=== PATIENT | male | born 1960 | race Caucasian/White ===

== ENCOUNTER → 2023-05-23 06:19 | Day surgery (SDC) | payer OTHER, SELFPAY | LOC: GI 06:19 | PROVIDERS: ATTENDING PHYSICIAN Internal Medicine Gastroenterology | DX: Z12.11 Encounter for screening for malignant neoplasm of colon (principal); K64.8 Other hemorrhoids; D12.2 Benign neoplasm of ascending colon; D12.3 Benign neoplasm of transverse colon; D12.4 Benign neoplasm of descending colon | CPT/HCPCS: 45385; 88305 ==

== ENCOUNTER 2023-06-22 04:17 | Inpatient (IN) | payer OTHER, SELFPAY ==
[2023-06-21 22:17] VITALS: BMI 28.1
[2023-06-21 22:26] VITALS: BP 174/119
[2023-06-21 22:43] LABS: % Basophils 0.6 % (0-2); % Eosinophils 2.7 % (0-6); % Immature Granulocytes 0.4 % (0-0.5); % Lymphocytes 27.8 % (20.5-51.1); % Neutrophils 62.5 % (42.2-75.2); Absolute Basophils 0.1 10^3/uL (0-0.2); Absolute Eosinophils 0.3 10^3/uL (0-0.7); Absolute Immature Granulocytes 0.1 10^3/uL (0-0.05); Absolute Lymphocytes 3.5 10^3/uL (1.2-3.4); Absolute Monocytes 0.7 10^3/uL (0.1-0.6); Absolute Neutrophils 7.8 10^3/uL (1.4-6.5); Mean Corp Hgb Conc. 36.4 g/dL (33.0-37.0); Mean Corpuscular Hgb 30.5 pg (27.0-31.0); Mean Platelet Volume 11.3 fL (7.4-10.4); Nucleated Red Blood Cells % 0 % (-); Platelet Count 147 10^3/uL (130-400); Red Blood Cell Count 5.24 10^6/uL (4.70-6.10); Red Cell Dist. Width 13.2 % (11.5-14.5); White Blood Cell Count 12.4 10^3/uL (4.8-10.8)
[2023-06-21 23:01] LABS: ALT (SGPT) 19 U/L (0-50); AST (SGOT) 25 U/L (17-59); Albumin 4.9 g/dl (3.5-5.0); Alkaline Phosphatase 90 U/L (38-126); Blood Urea Nitrogen 18 mg/dl (9-20); Carbon Dioxide 24 mmol/L (22-30); Chloride 104 mmol/L (98-107); Glucose 117 mg/dl (70-99); Lipase 111 U/L (23-300); Potassium 4.2 mmol/L (3.5-5.1); Sodium 136 mmol/L (135-145); Total Bilirubin 0.9 mg/dl (0.2-1.3); Total Protein 8.2 g/dl (6.3-8.2); eGFR > 60.00
[2023-06-21 23:35] LABS: Urine Albumin Negative (Neg - Trace); Urine Bilirubin Negative (Negative); Urine Character Clear (Clear); Urine Color Yellow; Urine Glucose Negative (Negative); Urine Ketone Trace (Negative); Urine Leukocyte Negative (Negative); Urine Nitrite Negative (Negative); Urine Occult Blood Negative (Negative); Urine Urobilinogen Negative (Neg - 1+)
[2023-06-22] VITALS (17 sets, daily range): BP systolic 0–146; BP diastolic 77–99
[2023-06-22] MEDS: ZOFRAN 4 MG IV (01:25)
[2023-06-22] MEDS: DILAUDID 1 MG IV (01:26)
--- NOTE | 2023-06-22 01:34 | ED.GENMED ---
History of Present Illness
General
Chief Complaint: Abdominal Pain
Source: patient
Exam Limitations: none
Time Seen by Provider: 06/22/23 00:44
Travel History
Have you had any contact with someone who has COVID-19?: No
Do you have any symptoms of coronavirus? Fever > 100 degrees, chills, cough, shortness of breath, sore throat, loss of taste or smell, muscle aches, or headache?: No
History of Present Illness
History of Present Illness:
This is a 62 year old male that comes in with c/o right upper abd pain. States that this started a few days ago. Tonight it was so bad that he can hardly touch his upper abd. sates that he tried Prilosec as he thought it was reflux and nothing
helped. States that he is nauseated. Denies any fever, chills, chest pain, SOB, vomiting, diarrhea, headache, dizziness, urinary burning.
Past History
Past History
ED Past Medical History: GERD, HTN, Hypercholesterolemia, Psychiatric (Anxiety) and Other (Back pain, Migraines, Herniated disc)
ED Past Surgical History: Appendectomy and Cardiac (bypass)
Social History
Tobacco: Non-smoker
Alcohol: None
Personal:
Living: with family
Review of Systems
Review of Systems
All Other Systems: ROS reviewed and negative except as documented in HPI and ROS
Constitutional: Reports no symptoms; Denies fever or chills
EENT: Reports no symptoms
Respiratory: Reports no symptoms; Denies cough or trouble breathing
Cardiac: Reports no symptoms; Denies chest pain
ABD/GI: Reports abdominal pain and nausea; Denies vomiting or diarrhea
: Reports no symptoms; Denies dysuria, frequency or urgency
Musculoskeletal: Reports no symptoms
Skin: Reports no symptoms
Neurological: Reports no symptoms; Denies dizzy or headache
Psychiatric: Reports no symptoms
Phy Exam
General Physical Exam
General Presentation: mild distress
General age: appears stated age
General Skin: warm and dry
General Habitus: normal
General Mental: alert
General Hydration: dry mucous membranes
ENT Exam
ENT Exam: TM's normal, pharynx normal and neck supple
Eye Exam
Eye Exam: EOMI
Cardiovascular Exam
Cardiovascular Exam: regular rate/rhythm, no edema, no murmur and normal peripheral pulses
Pulmonary Exam
Pulmonary Exam: lungs clear, no respiratory distress, no rales, chest non tender, no crackles, no rhonchi, no wheezing and no cough
Gastrointestinal Exam
Gastrointestinal Exam: soft, no organomegaly, no pulsatile mass, non distended, tender (Epigastric and right upper abd tenderness with palpation) and other (Hypoactive bowel sounds)
Musculoskeletal Exam
Musculoskeletal Exam: full ROM and no edema
Skin Exam
Skin Exam: normal color, warm/dry, no rash and no petechia
Psychiatric Exam
Psychiatric Exam: normal mood/affect
Course
Orders/Labs/Results
Orders:
Orders
06/21/23 22:38
Complete Blood Count/With Diff Urgent
Comprehensive Metabolic Panel Urgent
Lipase Urgent
06/21/23 23:21
Urinalysis Reflex To Culture Urgent
Date Specimen was Collected: 06/21/23
Time Specimen was Collected: 22:29
06/22/23 01:13
HYDROmorphone [Dilaudid] 1 mg IV NOW STA
Ondansetron Injectable [Zofran] 4 mg IV NOW STA
US Abdomen Complete/Upper Urgent
Comment:
Reason For Exam: Right upper abd pain
Abnormal Lab Results
06/21/23 06/21/23
22:38 23:21
WBC 12.4 H 10^3/uL
(4.8-10.8)
MPV 11.3 H fL
(7.4-10.4)
Abs Immat Gran (auto) 0.1 H 10^3/uL
(0-0.05)
Absolute Neuts (auto) 7.8 H 10^3/uL
(1.4-6.5)
Absolute Lymphs (auto) 3.5 H 10^3/uL
(1.2-3.4)
Absolute Monos (auto) 0.7 H 10^3/uL
(0.1-0.6)
Glucose 117 H mg/dl
(70-99)
Urine Ketones Trace A
(Negative)
06/21/23 22:38
06/21/23 22:38
Leukocytosis, Glucose nonfasting, Urine negative for infection, Lipase normal at 111
Vital Signs
Initial and Last Documented VS:
Initial Vital Signs
Temp Pulse Resp BP Pulse Ox
97.8 F 81 15 174/119 99
06/21/23 22:26 06/21/23 22:26 06/21/23 22:26 06/21/23 22:26 06/21/23 22:26
Last Documented Vital Signs
Temp Pulse Resp BP Pulse Ox
97.8 F 81 15 174/119 99
06/21/23 22:26 06/21/23 22:26 06/21/23 22:26 06/21/23 22:26 06/21/23 22:26
MDM/Problems Addressed
Differential Diagnosis Includes:
Gallbladder disease, Gastritis, Duodenal ulcer
MDM/Problems Addressed:
This is a 62 year old male that comes in with c/o upper abd pain. States that this started about 3 days ago and he thought it was reflux. States that he took Prilosec and nothing helped.
Will labs and US. Will medicate for pain.
back into see patient and . Explained that his US shows acute cholecystitis. Feel that he had a Negative Garcia's sign due to the Dilaudid that he was given. Patient prior to medication was shaking and you can hardly touch patient abdomen. Will
admit for further evaluation and Possible MRCP. Hospitalist notified.
Chronic conditions affecting care:
NA
Acute Exacerbation and/or Progression of Chronic Illness:
NA
*Radiology
Radiology exam reviewed: radiology read reviewed (US night hawk- Markedly distended gallbladder measuring 14.3cm in length and intraluminal sludge and tiny gallstones in the fundal region. NO gallbladder wall thickening or pericholecystic fluid.
negative Garcia's Sign. No biliary ductal dilation. Findings may reflect biliary colic or early acute) and other (US cont- cholecystitis in the appropriate clinical setting. Visualized liver, Kidneys, pancreas, and spleen without gross abnormality. )
*Pulse Oximetry
Patient hypoxic: no
*EKG
Interpreted by ED Provider?: NA
Rate: EKG- N/A
*[employer] Interpretation
Rate: [employer]- N/A
*Critical Care Note
Total Time (30-74mins, 75-104mins- exclusive of procedures): Not Applicable
ED Attending Note
-
Portions of this chart may have been created with voice recognition software.� Occasional wrong word or��sound alike� substitutions may have occurred due to the inherent limitations of voice recognition software.
Discharge Plan
Departure
Patient Disposition: Home (Routine Discharge)
Date of Disposition: 06/22/23
Time of Disposition: 02:10
Patient with high blood pressure during this ER visit?: Yes
Condition: Good
Covid-19: Not Applicable
Discharge Problem:
Acute cholecystitis
Prescriptions:
No Action
sumatriptan succinate [Imitrex] 25 mg Tablet
25 mg PO ONCE PRN (Reason: migranes)
acetaminophen 500 mg Tablet
500 mg PO Q6H PRN (Reason: back pain)
tamsulosin 0.4 mg Capsule
0.4 mg PO DAILY
paroxetine HCl 20 mg Tablet
20 mg PO DAILY
metoprolol succinate 25 mg Tablet Extended Release 24 Hr
25 mg PO DAILY
finasteride 5 mg Tablet
5 mg PO DAILY
diazepam 5 mg Tablet
5 mg PO BID PRN (Reason: pelvic pain)
rosuvastatin 40 mg Tablet
40 mg PO DAILY
multivitamin Tablet
1 tab PO DAILY
aspirin 81 mg Capsule
81 mg PO DAILY
diltiazem HCl 120 mg Capsule,Extended Release 24hr
120 mg PO DAILY Qty: 30 3RF
Eliquis 5 mg Tablet
5 mg PO BID Qty: 60 3RF
pantoprazole 40 mg Tablet,Delayed Release (Dr/Ec)
40 mg PO DAILY Qty: 30 3RF
oxycodone 5 mg Tablet
5 mg PO Q6HPRN PRN (Reason: mild pain) Qty: 25 0RF
amiodarone [Pacerone] 200 mg tablet
200 mg PO BID Qty: 60 1RF
potassium chloride 10 mEq tablet extended release
10 meq PO DAILY Qty: 5 0RF
furosemide [Lasix] 20 mg tablet
20 mg PO DAILY Qty: 5 0RF
Referrals:
Ottoniel Ruvalcaba DO [Family Provider] -
Interventions
Interventions:
*Risk Screen - Suicide Last Done: 06/21/23 22:26
*General Assessment Last Done: 06/21/23 22:26
*Neglect/Abuse Screening Last Done: 06/21/23 22:26
ED- Fall Risk Assessment Last Done: 06/22/23 01:42
*ED COVID-19 Vaccine History Last Done: 06/21/23 22:26
EZ-Wpgiix-Gwwrrhwasx Assessment Last Done: 06/22/23 01:42
Discharge Date and Time
Print Language: BAHAMIAN
--- NOTE | 2023-06-22 03:53 | HPS.HSE ---
Family Physician
-
Family Physician: Ottoniel Ruvalcaba
Chief Complaint
-
Abd Pain
History of Present Illness
Patient is a 62y M with PMH significant for ASCVD who presents to ED complaining of abdominal pain. Patient states that he has had RUQ discomfort for the past 2 months or so. Pain was initially mild and intermittent. His symptoms have steadily
progressed over the past 2 months and have been markedly worse for the past 3-4 days. Patient reports some nausea. One episode of emesis. Patient states that pain has occurred with or without eating. He does feel that symptoms seemed worse after
particularly spicy meals. He denies any fevers or chills. No changes in bowel habits.
Patient started taking Prilosec at home without any change in his symptoms.
Patient notes that pain was quite severe throughout the day today and he presented to the ED for further evaluation.
Pain is in the RUQ with occasional radiation laterally / to the R flank.
Medical History
Past Medical History
Past Medical History: Reports Other
Additional Past Medical History:
ASCVD
Anxiety / Panic Attacks
GERD
DDD / DJD
BPH
Migraine Headaches
Past Surgical History: Reports Other
Additional Past Surgical History:
CABG x 3
Appendectomy
Social History
Tobacco: Non-smoker
Alcohol: None
Drug: None
Family History
Family History: Other (Father: CAD, Bladder Cancer )
Allergies / Home Medications
Allergies reflects when Allergies were last updated in [facility].
Home Medications with original date entered in [facility]
Allergy/Medication List:
Allergies
Allergy/AdvReac Type Severity Reaction Status Date / Time
prochlorperazine Allergy Motor Verified 08/09/22 21:49
[From Compazine] restlessness,
shaking
shellfish derived Allergy Hives Verified 08/09/22 21:49
Home Medications
acetaminophen 500 mg tablet 500 mg PO Q6H PRN back pain 07/28/22
diazepam 5 mg tablet 5 mg PO BID PRN pelvic pain 07/28/22
finasteride 5 mg tablet 5 mg PO DAILY Urinary Issue 07/28/22
paroxetine HCl 20 mg tablet 20 mg PO DAILY Mental Health/Anxiety 07/28/22
rosuvastatin 40 mg tablet 40 mg PO DAILY High Cholesterol 07/28/22
sumatriptan succinate 25 mg tablet (Imitrex) 25 mg PO ONCE PRN migranes 07/28/22
tamsulosin 0.4 mg capsule 0.4 mg PO DAILY Urinary Issue 07/28/22
aspirin 81 mg capsule 81 mg PO DAILY Blood Clot Prevention/Tx 08/03/22
multivitamin 1 tab PO DAILY Supplement 08/03/22
Review of Systems
-
History Source: Patient
A 12 point ROS was completed and negative except as noted: Yes
Constitutional: Denies Fever, Fatigue or Chills
EENT: Denies Sore Throat
Respiratory: Denies Cough or Trouble Breathing
Cardiac: Denies Chest Pain or Palpitations
Abdomen/GI: Reports Abdominal Pain, Nausea and Vomiting; Denies Diarrhea, Constipated, Bloody Stools or Black Stools
: Reports Flank Pain; Denies Dysuria or Frequency
Musculoskeletal: Denies Joint Pain or Edema
Neurological: Denies Dizzy or Headache
Psych: Denies Depression or Anxiety
Physical Exam
Vital Signs
Vital Signs
Temp Pulse Resp BP Pulse Ox
97.8 F 88 22 141/98 92
06/21/23 22:26 06/22/23 02:13 06/22/23 02:13 06/22/23 03:00 06/22/23 02:30
Physical Exam
General: Other (62y M in no acute distress.)
HEENT: Moist mucous membranes and PERRLA
Respiratory: Clear; No Wheezes, Rales or Rhonchi
Cardiac: S1/S2 and Regular Rhythm; No Murmur
GI: Soft, Non Distended, Normal Bowel Sounds and Other (Pos RUQ fullness and tenderness with guarding / no rebound.)
Musculoskeletal: No Clubbing, No Cyanosis and No Edema
Neuro: AO x 3
Laboratory Results
-
06/21/23 22:38
06/21/23 22:38
Laboratory Results
Total Bilirubin 0.9 mg/dl (0.2-1.3) 06/21/23 22:38
AST 25 U/L (17-59) 06/21/23 22:38
ALT 19 U/L (0-50) 06/21/23 22:38
Alkaline Phosphatase 90 U/L (38-126) 06/21/23 22:38
Lipase 111 U/L (23-300) 06/21/23 22:38
Impression/Plan
-
A/P: Patient is a 62y M with PMH significant for ASCVD who presents to ED complaining of abdominal pain.
Cholelithiasis +/- Acute Cholecystitis
- Admit for further evaluation and treatment.
- Severe pain today - gradually worsening over the past 2 months.
- Imaging done in the ED today shows multiple gallstones and markedly distended gallbladder.
- No wall thickening or pericholecystic fluid. Afebrile. Mild leukocytosis. LFTs are completely normal.
- Cover with IV Zosyn for now.
- NPO, IVFs, pain control, etc.
- Surgery evaluation for additional recommendations / eventual cholecystectomy.
- Follow for any new / worsening symptoms.
ASCVD
- Stable. No chest pain, dyspnea, etc.
- s/p CABG x 3 08/2022. No issues / symptoms since that time.
- Continue current CV med regimen including ASA, statin, etc.
- Follow on telemetry for now / debora-op.
- Followed by Cardiology at [facility].
- Surgery was done here by Dr. Higgins. Followed by [facility] during that stay.
BPH
- Stable. Continue tamsulosin / finasteride.
- Bladder scan protocol.
Anxiety / Panic Attacks
- Stable. Continue paroxetine.
DVT Prophylaxis: SCDs
Code Status: Full
[2023-06-22] MEDS: DILAUDID 0.5 MG IV ×3 (04:34→20:44)
[2023-06-22] MEDS: ZOSYN 50 IV ×3 (04:34→23:14)
[2023-06-22 05:50] LABS: Hematocrit 42.4 % (39.0-52.0); Hemoglobin 15.1 g/dL (13.0-18.0); Mean Corp Hgb Conc. 35.6 g/dL (33.0-37.0); Mean Corpuscular Hgb 31.1 pg (27.0-31.0); Mean Corpuscular Volume 87.2 fL (80.0-94.0); Mean Platelet Volume 12.4 fL (7.4-10.4); Platelet Count 134 10^3/uL (130-400); Red Blood Cell Count 4.86 10^6/uL (4.70-6.10); Red Cell Dist. Width 13.1 % (11.5-14.5); White Blood Cell Count 13.4 10^3/uL (4.8-10.8)
[2023-06-22 06:04] LABS: ALT (SGPT) 16 U/L (0-50); AST (SGOT) 26 U/L (17-59); Albumin 4.6 g/dl (3.5-5.0); Alkaline Phosphatase 75 U/L (38-126); Blood Urea Nitrogen 18 mg/dl (9-20); Calcium 9.8 mg/dl (8.4-10.2); Carbon Dioxide 22 mmol/L (22-30); Chloride 102 mmol/L (98-107); Direct Bilirubin 0.3 mg/dl (0.0-0.4); Estimated Creatinine Clearance 79 ml/min; Glucose 121 mg/dl (70-99); Potassium 4.2 mmol/L (3.5-5.1); Sodium 137 mmol/L (135-145); Total Bilirubin 0.9 mg/dl (0.2-1.3); Total Protein 7.6 g/dl (6.3-8.2); eGFR > 60.00
--- NOTE | 2023-06-22 07:42 | CON.GS ---
Medical History
-
Chief Complaint: RUQ pain
History of Present Illness:
Patient is a 62 yo M with a PMH of obesity, HTN, HLD, CAD s/p CABG x 3 in 08/[address] Higgins, arthritis and cervical neck disease, and BPH. Mr. Obrien presents to the hospital with approximately 2 months of persistent and worsening RUQ abdominal
pain. He states that his symptoms have been waxing and waning over the past several weeks to months. Over the past week he has noticed worsening sharp RUQ abdominal pain. Symptoms seem to be worse with eating spicy foods, though no clear
association with fatty food intake. Associated mild nausea, but no episodes of emesis. No fevers or chills. He denies any jaundice, pale stools, or tea colored urine. He does note some fluctuations in bowel habits with a more constipation. He
did trial PPI medication over the past few days with no improvement in his symptoms. He does have chronic GERD, and states that the symptoms are different from his typical gastritis or reflux. Of note, he states that he was last seen by his
card placer in 04/2023, no concerns or changes at that time. He denies any chest pain and is able to walk up a flight of stairs without any issues.
Past Medical History
Past Medical History: CAD, HTN, Hypercholesterolemia, Psychiatric (Depression/anxiety) and Other (BPH)
Past Surgical History: Cardiac (CABG x3)
Social History
Tobacco: Non-Smoker
Alcohol: Occasional
Drug: None
Personal:
Living: With Family
Employment: Employed
Family History
Family History: Reviewed & Noncontributory
Allergies / Home Medications
Allergy/AdvReac Type Severity Reaction Status Date / Time
prochlorperazine Allergy Motor Verified 08/09/22 21:49
[From Compazine] restlessness,
shaking
shellfish derived Allergy Hives Verified 08/09/22 21:49
�Medication �Instructions �Recorded �Confirmed �Type
acetaminophen 500 mg tablet 500 mg PO Q6H PRN back pain 07/28/22 06/22/23 History
diazepam 5 mg tablet 5 mg PO BID PRN pelvic pain 07/28/22 06/22/23 History
finasteride 5 mg tablet 5 mg PO DAILY Urinary Issue 07/28/22 06/22/23 History
paroxetine HCl 20 mg tablet 20 mg PO DAILY Mental 07/28/22 06/22/23 History
Health/Anxiety
rosuvastatin 40 mg tablet 40 mg PO DAILY High Cholesterol 07/28/22 06/22/23 History
sumatriptan succinate 25 mg tablet 25 mg PO ONCE PRN migranes 07/28/22 06/22/23 History
(Imitrex)
tamsulosin 0.4 mg capsule 0.4 mg PO DAILY Urinary Issue 07/28/22 06/22/23 History
aspirin 81 mg capsule 81 mg PO DAILY Blood Clot 08/03/22 06/22/23 History
Prevention/Tx
multivitamin 1 tab PO DAILY Supplement 08/03/22 06/22/23 History
Review of Systems
-
A 10 point review of systems was completed, and was negative except as per HPI.
Physical Exam
Vital Signs
Temp Pulse Resp BP Pulse Ox
97.8 F 98 15 124/96 94
06/21/23 22:26 06/22/23 07:00 06/22/23 07:00 06/22/23 07:00 06/22/23 07:00
06/21/23 06/22/23 06/23/23
06:59 06:59 06:59
Actual Weight 81.2 kg
Body Mass Index (BMI) 28.1
Lab Results
06/22/23 04:32
06/22/23 04:32
WBC 13.4 10^3/uL (4.8-10.8) H 06/22/23 04:32
Hgb 15.1 g/dL (13.0-18.0) 06/22/23 04:32
Hct 42.4 % (39.0-52.0) 06/22/23 04:32
Plt Count 134 10^3/uL (130-400) 06/22/23 04:32
Abs Immat Gran (auto) 0.1 10^3/uL (0-0.05) H 06/21/23 22:38
Neutrophils % 62.5 % (42.2-75.2) 06/21/23 22:38
Physical Exam
General: Well Developed, Well Nourished and No Apparent Distress
HEENT: Normocephalic and Anicteric
Respiratory: Non Labored Respirations
Cardiac: Regular Rhythm
GI: Soft, Non Distended, Tender (RUQ, positive Garcia's sign), Incisions (Well healed), Obese and Other (Non-peritoneal)
Musculoskeletal: No Edema
Skin: Warm and Dry
Neuro: Nonfocal/Grossly Intact
Data Reviewed
-
Ultrasound: Image Personally Visualized and interpreted
Labs: Labs Reviewed by me
Old Records: Reviewed
Assessment / Plan
-
Patient is a 62 yo M p/w likely acute on chronic cholecystitis
Time course is somewhat unusual with several months of more persistent pain, however, ultrasound with stones and distention as well as an exam which are consistent with cholecystitis. Differential including gastritis or duodenitis was considered
and discussed. Less likely given his trial of PPI medications and prior history with different more focal symptoms in the RUQ. The natural history and pathophysiology of biliary and stone disease was discussed. Anatomy was briefly reviewed.
Workup thus far was reviewed. Recommend and plan for cholecystectomy.
Plan for laparoscopic cholecystectomy with possible cholangiogram. The procedure itself, as well as the risks, benefits, and alternatives was discussed. Specifically, we discussed the risks of bleeding, infection, injury to surrounding structures
(bowel, bile ducts), CBD injury, need for open procedure. Typical postprocedural recovery was discussed. All questions answered. Consent signed.
-- Laparoscopic cholecystectomy possible IOC
-- NPO, IVF
-- Pain control: Tylenol and IV Dilaudid PRN
-- Abx: Zosyn
--- NOTE | 2023-06-22 07:51 | W.SUR.PREOP ---
Pre-Operative Surgical Note
-
I have examined this patient prior to the performance of the scheduled procedure.
The patient's condition is unchanged from the time of the current History and
Physical and the patient is able to undergo the scheduled procedure.
--- NOTE | 2023-06-22 08:27 | W.PN.HOSP.TC ---
Today's Communication/Plan
-
see A/P
Assessment / Plan
Assessment / Plan
HPI: 62y M with PMH significant for ASCVD who presented to ED complaining of abdominal pain. Patient states that he has had RUQ discomfort for the past 2 months or so. Pain was initially mild and intermittent. His symptoms have steadily
progressed over the past 2 months and have been markedly worse for the past 3-4 days. Patient reports some nausea. One episode of emesis. Patient stated that pain has occurred with or without eating. He does feel that symptoms seemed worse after
particularly spicy meals. He denies any fevers or chills. No changes in bowel habits.
Patient started taking Prilosec at home without any change in his symptoms.
Patient notes that pain was quite severe throughout the day on DOA and he presented to the ED for further evaluation.
Pain is in the RUQ with occasional radiation laterally / to the R flank.
A/P:
# Cholelithiasis +/- Acute Cholecystitis
Abd US noted Moderately distended gallbladder containing sludge and stones. No secondary findings for acute cholecystitis at this time.
Intraoperative cholangiogram with no filling defects identified within the biliary tree.
Pt underwent Laparoscopic cholecystectomy with IOC by 06/22/2023
Abd drain per surgery
Lovenox SQ for DVT ppx
Clears per GS and ADAT
# ASCVD - Stable.
No chest pain, dyspnea, etc.
s/p CABG x 3 in 08/2022. No issues / symptoms since that time.
Continue current CV med regimen including ASA, statin, etc.
Follow on telemetry for now / debora-op.
Followed by Cardiology at [facility].
Surgery was done here by Dr. Higgins. Followed by [facility] during that stay.
# BPH- Stable.
Continue tamsulosin / finasteride.
Bladder scan protocol.
# Anxiety / Panic Attacks - Stable.
Continue paroxetine.
DVT Prophylaxis: SCDs
Code Status: Full
Anticipated Discharge: 24 - 48 hours
Subjective/Interval History
-
Date of Service: June 22, 2023
Objective Data
-
Labs:
Laboratory Results
06/21/23 06/22/23
22:38 04:32
WBC 12.4 H 13.4 H
Hgb 16.0 15.1
Hct 44.0 42.4
Plt Count 147 134
Sodium 136 137
Potassium 4.2 4.2
Chloride 104 102
Carbon Dioxide 24 22
BUN 18 18
Creatinine 1.0 0.9
Glucose 117 H 121 H
Calcium 10.0 9.8
Total Bilirubin 0.9 0.9
AST 25 26
ALT 19 16
Alkaline Phosphatase 90 75
Vital Signs:
Vital Signs
Temp Pulse Resp BP Pulse Ox
37.2 C 98 15 124/96 99
06/22/23 07:51 06/22/23 07:00 06/22/23 07:00 06/22/23 07:00 06/22/23 07:51
Review of Systems
-
All other systems: Reviewed and negative
Physical Exam
-
General: Well Developed, Well Nourished, No Apparent Distress, Comfortable and Conversant; Negative Respiratory Distress
HEENT: Normocephalic, Atraumatic, Nose Appears Normal and Ears Appear Normal; Negative Oxygen
Respiratory: Clear to Auscultation and Non Labored Respirations; Negative Accessory Resp Muscle Use
Cardiac: Regular Rhythm and S1/S2
GI: Soft, Nontender and Other (abdominal drain)
Skin: Warm and Dry
Neuro: Awake, Alert, Oriented, AO x 3 and Nonfocal/Grossly Intact
Psych: Calm and Intact Judgement/Insight
Data Reviewed
-
Labs: Labs Reviewed by me
--- NOTE | 2023-06-22 11:28 | W.IMMPOSTOP ---
Addendum entered and electronically signed by Donell Moore MD 06/22/23 11:47:
[facility]#[id number]
Original Note:
Surgical Immed Post Op Note
-
Primary Surgeon: Oscar
Assisting Surgeon: None
Pre-op Diagnosis: Acute on chronic cholecystitis
Post-op Diagnosis: Acute on chronic cholecystitis
Procedure Performed: Laparoscopic cholecystectomy with IOC
Anesthesia Type: General
Specimen / Cultures:
1. Gallbladder
Estimated Blood Loss: 51 cc
Complications: None
Operative Findings:
1. Thin walled and friable, distended, severe inflammation at infundibulum
2. Artery identified and clipped
3. Top down cholecystectomy, GB opened at infundibulum to retrieve stones at cystic duct orifice, IOC with anatomy confirmed and no stones remaining
4. GB stapled with NOY 60 daugherty load at infundibulum/cystic duct junction
5. 19 Fr Tone drain into operative field
[2023-06-22] MEDS: NORMOSOL-R 1000 IV ×2 (12:25→23:14)
[2023-06-22] MEDS: ZOSYN IV (12:28)
[2023-06-22 12:31] LABS: Hematocrit 43.8 % (39.0-52.0); Hemoglobin 15.4 g/dL (13.0-18.0); Mean Corp Hgb Conc. 35.2 g/dL (33.0-37.0); Mean Corpuscular Hgb 30.7 pg (27.0-31.0); Mean Corpuscular Volume 87.3 fL (80.0-94.0); Mean Platelet Volume 11.5 fL (7.4-10.4); Platelet Count 117 10^3/uL (130-400); Red Blood Cell Count 5.02 10^6/uL (4.70-6.10); Red Cell Dist. Width 13.4 % (11.5-14.5); White Blood Cell Count 11.8 10^3/uL (4.8-10.8)
--- NOTE | 2023-06-22 14:00 | PTCARENOTE ---
pt arrived to 2S at 1300 from PACU. pt awake and alert. admission database and assessment completed as documented. telemetry reading SR. pt oriented to room, environment and plan of care. tolerating clear liquids. will observe.
[2023-06-22] MEDS: CRESTOR 40 MG PO (14:58)
[2023-06-22] MEDS: FLOMAX 0.400000000000000022 MG PO (14:58)
[2023-06-22] MEDS: PAXIL 20 MG PO (14:59)
[2023-06-22] MEDS: PROTONIX IV 40 MG IV (14:59)
[2023-06-22] MEDS: PROSCAR 5 MG PO (14:59)
[2023-06-22] MEDS: NSS (PRESERVATIVE FREE) 10 ML IV (14:59)
[2023-06-22] MEDS: LOVENOX 40 MG SC (17:37)
[2023-06-23 03:25] VITALS: BP 128/84
[2023-06-23] MEDS: TORADOL 10 MG IV (03:26)
[2023-06-23] MEDS: ZOSYN 50 IV (06:05)
[2023-06-23 06:06] LABS: % Basophils 0.1 % (0-2); % Immature Granulocytes 0.7 % (0-0.5); % Lymphocytes 9.8 % (20.5-51.1); % Monocytes 8.3 % (1.7-9.3); % Neutrophils 81.1 % (42.2-75.2); Absolute Immature Granulocytes 0.1 10^3/uL (0-0.05); Absolute Lymphocytes 1.5 10^3/uL (1.2-3.4); Absolute Monocytes 1.2 10^3/uL (0.1-0.6); Hematocrit 36.6 % (39.0-52.0); Hemoglobin 13.1 g/dL (13.0-18.0); Mean Corp Hgb Conc. 35.8 g/dL (33.0-37.0); Mean Corpuscular Hgb 30.5 pg (27.0-31.0); Mean Corpuscular Volume 85.3 fL (80.0-94.0); Mean Platelet Volume 11.7 fL (7.4-10.4); Nucleated Red Blood Cells % 0 % (-); Platelet Count 129 10^3/uL (130-400); Red Blood Cell Count 4.29 10^6/uL (4.70-6.10); Red Cell Dist. Width 13.5 % (11.5-14.5); White Blood Cell Count 14.8 10^3/uL (4.8-10.8)
[2023-06-23] MEDS: TYLENOL 650 MG PO (06:08)
[2023-06-23 06:29] LABS: ALT (SGPT) 34 U/L (0-50); AST (SGOT) 37 U/L (17-59); Albumin 3.8 g/dl (3.5-5.0); Alkaline Phosphatase 64 U/L (38-126); Blood Urea Nitrogen 15 mg/dl (9-20); Calcium 8.7 mg/dl (8.4-10.2); Carbon Dioxide 26 mmol/L (22-30); Chloride 103 mmol/L (98-107); Estimated Creatinine Clearance 79 ml/min; Glucose 120 mg/dl (70-99); Potassium 4.3 mmol/L (3.5-5.1); Sodium 134 mmol/L (135-145); Total Bilirubin 0.8 mg/dl (0.2-1.3); Total Protein 6.5 g/dl (6.3-8.2); eGFR > 60.00
[2023-06-23 07:27] VITALS: BP 126/73
--- NOTE | 2023-06-23 07:57 | W.PN.GS2 ---
Today's Communication / Plan
-
-- LFD
-- Pain control: Tylenol, Toradol, Oxycodone
-- HLIV
-- Abx: Zosyn, plan for 3 days outpatient Augmentin
-- DC with drain to be removed at outpatient next week
-- OK for DC from surgical standpoint
Assessment / Plan
-
Patient is a 62 yo M POD#1 s/p laparoscopic cholecystectomy with cholangiogram
Recovering well. No postoperative concerns.
-- LFD
-- Pain control: Tylenol, Toradol, Oxycodone
-- HLIV
-- Abx: Zosyn, plan for 3 days outpatient Augmentin
-- Lovenox for DVT
-- DC with drain to be removed at outpatient next week
-- OK for DC from surgical standpoint
Subjective Data
-
Date of Service: June 23, 2023
Feels much improved. Incisional soreness, but overall pain is much improved. No nausea or vomiting. No fevers or chills.
Objective Data
-
Intake and Output
06/22/23 06/23/23 06/24/23
06:59 06:59 06:59
Intake Total 3215 / 3215
Output Total 1515 / 1515
Balance 1700 / 1700
Intake:
Oral fluids 1240 / 1240
IV fluids (Total) 1825 / 1825
Norm 75 / 75
Normosol-R 1,000 ml @ 100 mls/ 50 / 50
hr IV .Q10H AMANUEL Rx#:[id number]
IV piggybacks 150 / 150
Output:
Drain Output (Total)
Abdomen Buck-Burgess
Urine, Voided 1500 / 1500
Vital Signs
Temp Pulse Resp BP Pulse Ox
98.5 F 96 16 128/84 93
06/23/23 03:25 06/23/23 03:25 06/23/23 03:25 06/23/23 03:25 06/23/23 03:25
Lab Results
06/23/23 05:43
06/23/23 05:43
Calcium 8.7 mg/dl (8.4-10.2) 06/23/23 05:43
Total Bilirubin 0.8 mg/dl (0.2-1.3) 06/23/23 05:43
Direct Bilirubin 0.3 mg/dl (0.0-0.4) 06/22/23 04:32
AST 37 U/L (17-59) 06/23/23 05:43
ALT 34 U/L (0-50) 06/23/23 05:43
Alkaline Phosphatase 64 U/L (38-126) 06/23/23 05:43
Total Protein 6.5 g/dl (6.3-8.2) 06/23/23 05:43
Albumin 3.8 g/dl (3.5-5.0) 06/23/23 05:43
Physical Exam
-
Gen: NAD
Abd: soft, minimal tenderness, ND, non-peritoneal, incisions c/d/i - no erythema, ecchymosis or drainage, TRISH minimal serosang
[2023-06-23] MEDS: PROSCAR 5 MG PO (08:15)
[2023-06-23] MEDS: FLOMAX 0.400000000000000022 MG PO (08:15)
[2023-06-23] MEDS: CRESTOR 40 MG PO (08:15)
[2023-06-23] MEDS: PAXIL 20 MG PO (08:15)
[2023-06-23] MEDS: LOW STRENGTH ASPIRIN 81 MG PO (08:16)
[2023-06-23] MEDS: PROTONIX IV 40 MG IV (08:16)
[2023-06-23] MEDS: NSS (PRESERVATIVE FREE) 10 ML IV (08:16)
[2023-06-23] MEDS: NORMOSOL-R IV (08:50)
--- NOTE | 2023-06-23 09:36 | W.PN.HOSP.TC ---
Addendum entered and electronically signed by Ofelia Serrano MD 06/23/23 14:39:
total DC time 35 min
Original Note:
Today's Communication/Plan
-
see A/P
Assessment / Plan
Assessment / Plan
HPI: 62y M with PMH significant for ASCVD who presented to ED complaining of abdominal pain. Patient states that he has had RUQ discomfort for the past 2 months or so. Pain was initially mild and intermittent. His symptoms have steadily
progressed over the past 2 months and have been markedly worse for the past 3-4 days. Patient reports some nausea. One episode of emesis. Patient stated that pain has occurred with or without eating. He does feel that symptoms seemed worse after
particularly spicy meals. He denies any fevers or chills. No changes in bowel habits.
Patient started taking Prilosec at home without any change in his symptoms.
Patient notes that pain was quite severe throughout the day on DOA and he presented to the ED for further evaluation.
Pain is in the RUQ with occasional radiation laterally / to the R flank.
A/P:
# Cholelithiasis +/- Acute Cholecystitis
Abd US noted Moderately distended gallbladder containing sludge and stones. No secondary findings for acute cholecystitis at this time.
Intraoperative cholangiogram with no filling defects identified within the biliary tree.
Pt underwent Laparoscopic cholecystectomy with IOC by 06/22/2023
Cont Abd drain with plan for removal outpatient by GS
Lovenox SQ for DVT ppx during hospital stay
ADAT to low fat , pt tolerated well
Cont Zosyn during hospital stay and plan for outpatient Augmentin, would cont 5 days
repeat CBC outpt in 1 week with result to PCP (WBC remain elevated today at 14.8, likely reactive response- anticipate would normalize in coming week)
# ASCVD - Stable.
No chest pain, dyspnea, etc.
s/p CABG x 3 in 08/2022. No issues / symptoms since that time.
Continue current CV med regimen including ASA, statin, etc.
Follow on telemetry for now / debora-op.
Followed by Cardiology at [facility].
Surgery was done here by Dr. Higgins. Followed by CBC during that stay.
# BPH- Stable.
Continue tamsulosin / finasteride.
Bladder scan protocol.
# Anxiety / Panic Attacks - Stable.
Continue paroxetine.
DVT Prophylaxis: SCDs
Code Status: Full
DW at bedside
Anticipated Discharge: Today
Subjective/Interval History
-
Date of Service: June 23, 2023
Objective Data
-
Labs:
Laboratory Results
06/23/23
05:43
WBC 14.8 H
Hgb 13.1
Hct 36.6 L
Plt Count 129 L
Sodium 134 L
Potassium 4.3
Chloride 103
Carbon Dioxide 26
BUN 15
Creatinine 0.9
Glucose 120 H
Calcium 8.7
Total Bilirubin 0.8
AST 37
ALT 34
Alkaline Phosphatase 64
Vital Signs:
Vital Signs
Temp Pulse Resp BP Pulse Ox
36.8 C 77 18 126/73 94
06/23/23 07:27 06/23/23 07:27 06/23/23 07:27 06/23/23 07:27 06/23/23 07:27
I&O
06/22/23 06/23/23 06/24/23
06:59 06:59 06:59
Intake Total 3215 / 3215
Output Total 1515 / 1515
Balance 1700 / 1700
Review of Systems
-
All other systems: Reviewed and negative
Physical Exam
-
General: Well Developed, Well Nourished, No Apparent Distress, Comfortable and Conversant; Negative Respiratory Distress
HEENT: Normocephalic, Atraumatic, Nose Appears Normal and Ears Appear Normal; Negative Oxygen
Respiratory: Clear to Auscultation and Non Labored Respirations; Negative Accessory Resp Muscle Use
Cardiac: Regular Rhythm and S1/S2
GI: Soft, Nontender and Other (abdominal drain)
Skin: Warm and Dry
Neuro: Awake, Alert, Oriented, AO x 3 and Nonfocal/Grossly Intact
Psych: Calm and Intact Judgement/Insight
Data Reviewed
-
Labs: Labs Reviewed by me
--- NOTE | 2023-06-23 10:52 | CM ---
Alert awake oriented patient who lives with his Promise who lives in a 2 story home with 1 step to enter and bed and 13 steps bed /bathroom . He is independent in driving and in all activities of daily living.He was offered Vn he declined
need.His drove him home.
VN Hx /SNF history
[facility] Linda Cisneros
PCP Ottoniel Vargas
[facility] Home Declined VN
--- NOTE | 2023-06-23 14:04 | W.DCSUMMARY ---
Discharge Summary
Discharge Data
Date of Admission: 06/22/23
Date of Discharge: 06/23/23
-
Pending Results: No
Hospital Course
Principal Diagnosis:
Cholelithiasis with biliary colic, without acute cholecystitis.
Chronic Diagnoses:�
History of bypass surgery 08/2022.
Benign prostate hypertrophy
Anxiety / Panic Attacks - Stable.
Consultations:�
General surgery
Procedures:�
Laparoscopic cholecystectomy by general surgery 06/22/2023
Clinical course:�
This is a 62-year-old male with past medical history as stated above, who presented with right upper quadrant abdominal pain that is worse after eating spicy food.
Problem 1:
Cholelithiasis without acute cholecystitis.
His abdominal ultrasound noted Moderately distended gallbladder containing sludge and stones. No secondary findings for acute cholecystitis at this time.
He underwent Laparoscopic cholecystectomy with Intraoperative cholangiogram by GS on 06/22/2023.
His intraoperative cholangiogram showed no filling defect within the biliary tree.
An abdominal drain was placed which he can continue following discharge, and this can be removed outpatient by general surgery.
His diet was advanced to low-fat which he tolerated well prior to discharge.
He received Zosyn during his hospital stay, and was discharged with Augmentin for 5 more days.
His WBC was at 14.8 on the day of discharge (likely reactive response). He can repeat CBC outpatient in 1 week with result to PCP.
As for the rest of his medical problems, they were stable during his hospital stay.
Discharge Plan
-
Patient Disposition: Home (Routine Discharge)
Discharge Diagnosis/Procedures: Cholelithiasis status post Laparoscopic cholecystectomy with cholangiogram
Condition: Good
Diet: Low Fat
Activity: No strenuous activity
Additional Activity: No heavy lifting (>20 lbs) or strenuous activities for 2 weeks postoperatively
Driving Restrictions: No driving if too sore or taking narcotics
Bathing Restrictions: OK to Shower
Blood Work: CBC and CMP in 1 week, result to PCP
Wound Care: Keep incisions clean and dry. Glue will flake off in 2 to 3 weeks. Stitches will dissolve. Empty TRISH drain daily and record outputs. Call for any brown or green output.
Activity Restrictions/Additional Instructions:
Call for fevers (>100.5), nausea or vomiting, worsening abdominal pain
Follow up with surgery for abdominal drain removal.
Referrals:
Ottoniel Ruvalcaba DO [Family Provider] - in less than 1 week
Donell Moore MD [Active] - 06/28/23 (Drain removal)
Prescriptions:
New
amoxicillin-pot clavulanate 875-125 mg tablet
1 tab PO Q12 5 Days Qty: 10 0RF
oxycodone 5 mg tablet
5 mg PO Q4HPRN PRN (Reason: breakthrough/severe pain) Qty: 10 0RF
Continued
tamsulosin 0.4 mg Capsule
0.4 mg PO DAILY
paroxetine HCl 20 mg Tablet
20 mg PO DAILY
finasteride 5 mg Tablet
5 mg PO DAILY
diazepam 5 mg Tablet
5 mg PO HSPRN PRN (Reason: pelvic pain)
rosuvastatin 40 mg Tablet
40 mg PO DAILY
acetaminophen [Tylenol] 325 mg Tablet
325 mg PO Q6HPRN PRN (Reason: back pain)
sumatriptan succinate 50 mg Tablet
0 mg PO .COMPLEX
Rx Instructions:
06/22/2023, take 1 tab at onset of headache; if no relief may repeat 1 tab after at least 2 hrs; max = 4 tabs/24 hr.
aspirin 81 mg Tablet,Delayed Release (Dr/Ec)
81 mg PO DAILY
omeprazole magnesium [Prilosec OTC] 20 mg Tablet,Delayed Release (Dr/Ec)
20 mg PO DAILY PRN (Reason: heartburn)
Unknown Vitamins
4 tab PO DAILY
Discharge Orders:
Discharge Patient (As Directed); Ordered 06/23/23
Ordered By: Ofelia Serrano
Discharge Date and Time
Discharge Date/Time: 06/23/23 10:40
Print Language: ESTONIAN
== END 2023-06-23 10:40 | disposition home or self-care (01) | DRG 418 ==
LOC: 2 SOUTH 04:17
PROVIDERS: Emergency Medicine; ADMITTING PHYSICIAN Hospitalist; ATTENDING PHYSICIAN Internal Medicine; EMERGENCY PHYSICIAN Student in an Organized Health Care Education/Training Program; FAMILY PHYSICIAN Family Medicine; OTHER PHYSICIAN Surgery
PROC: 0FT44ZZ Resection of Gallbladder, Percutaneous Endoscopic Approach (ICD-10-PCS; 2023-06-22)
PROC: BF5C2Z0 Other Imaging of Hepatobiliary System, All using Fluorescing Agent, Intraoperative (ICD-10-PCS; 2023-06-22)
DX: K80.70 Calculus of gallbladder and bile duct without cholecystitis without obstruction (principal); K82.1 Hydrops of gallbladder; E78.00 Pure hypercholesterolemia, unspecified; F41.0 Panic disorder [episodic paroxysmal anxiety]; F32.A Depression, unspecified; K66.0 Peritoneal adhesions (postprocedural) (postinfection); G43.909 Migraine, unspecified, not intractable, without status migrainosus; I25.10 Atherosclerotic heart disease of native coronary artery without angina pectoris; N40.0 Benign prostatic hyperplasia without lower urinary tract symptoms; M19.90 Unspecified osteoarthritis, unspecified site; I10 Essential (primary) hypertension; K21.9 Gastro-esophageal reflux disease without esophagitis; M54.9 Dorsalgia, unspecified; Z79.82 Long term (current) use of aspirin; Z79.01 Long term (current) use of anticoagulants; Z79.891 Long term (current) use of opiate analgesic; Z95.1 Presence of aortocoronary bypass graft; Z88.8 Allergy status to other drugs, medicaments and biological substances; Z91.013 Allergy to seafood
CPT/HCPCS: 88304; 74300; 76000; 76700; 80053; 81003; 82248; 83690; 85025; 85027; 96365; 96375; 99285; A4300